=== PATIENT | female | born 1960 | race Caucasian/White ===

== ENCOUNTER 2024-03-18 06:46 | Observation (INO) ==
--- NOTE | 2024-03-18 07:13 | Emergency Department Note ---
Impression & Plan Dizziness, Headache, Balance problem, Ambulatory dysfunction ED Provider Note NAME: STORM MUSTAFA AGE: 63 SEX: F : 1960 ARRIVES VIA: Walk-In INFORMANT: [Patient] ED PROVIDER(S): [Albert Booth MD] Patient first seen by me at 0700 CHIEF COMPLAINT: Dizziness HISTORY OF PRESENT ILLNESS: The patient is a 63-year-old female who presents to the ER with 2 hours of symptoms. The patient states that she woke up this morning at 5 AM and when she went to sit on the edge of the bed, felt some pressure in her head especially on the right and she felt very off balance. She was dizzy and nauseated. She had a hard time making it to the bathroom and back. She had to hold onto the wall because she was so off balance. There is no arm or leg weakness per se. She has not had cough or congestion, no chest pain or shortness of breath. No urinary complaints. No history of previous CVA, no history of vertigo. Of note, the patient went to bed last night feeling perfectly at baseline. Last known well was at midnight, 7 hours ago. PMHx/PSHx/Social Hx: See Below PHYSICAL EXAM: GENERAL: Patient is in no acute distress. HEENT: No acute trauma, normocephalic atraumatic, mucous membranes moist, no nasal congestion. No nystagmus. NECK: No stridor, no adenopathy, no meningismus, trachea is midline. LUNGS: Clear to auscultation bilaterally, no wheeze, no rhonchi, breath sounds equal. HEART: Without murmurs gallops or rubs, regular rate and rhythm. ABDOMEN: Soft, nontender, no peritonitis. EXTREMITIES: No cyanosis, full range of motion of all the joints without pain or difficulty. NEUROLOGIC: Oriented x 3. No speech slur, no extremity drift or cerebellar dysfunction. When attempting to ambulate, the patient is extremely off balance, she has a very hard time standing without assistance. SKIN: No jaundice, no diaphoresis. DIFFERENTIAL DIAGNOSIS: Vertigo, CVA, intracranial bleeding, UTI, electrolyte imbalance, among others. EMERGENCY DEPARTMENT PROCEDURES: MEDICAL DECISION MAKING: There is no leukocytosis or concerning anemia. There is a normal platelet count. No coagulopathy. No renal failure or significant electrolyte abnormality. No concerning liver enzyme elevation. ECG showed a sinus rhythm, no acute ischemia. Cardiac enzyme testing x 1 is not consistent with acute cardiac injury. Brain CT did not show any bleeding or mass effect. CT angiography of the neck and brain were performed, there was no clot or significant stenosis. On exam, the patient had a difficult time with balance and standing. No focal extremity deficits, no speech slur. Given her presentation, a stroke alert was called. The patient was out of the window for TNK. Her last known well was around 7 hours ago. The stroke neurologist from [facility] did see the patient via telemedicine. Patient is in need of further workup from a stroke standpoint. Hospitalization is indicated. The patient was given oral aspirin, oral Plavix and oral atorvastatin as directed by the consulting neurologist. The patient received IV Benadryl, IV Tylenol, IV Zofran to help with her symptoms/complaints. The patient's presentation is consistent with potential vertigo. A posterior circulation stroke was certainly a concern as well. Further care/workup in the hospital is warranted. The patient is aware of all her findings, I did speak with case management, the on-call hospitalist was consulted. Prior/Outside records/notes reviewed: None ECG per my interpretation: Indication was possible stroke. The ECG shows a sinus rhythm with a first-degree AV block. The rate is 72. There is no ST elevation, no PVCs. The QTc is 438. Continuous Cardiac Monitoring per my interpretation: An order was placed for continuous cardiac monitoring. The monitor shows a rate of 77 with sinus rhythm with a first AV block. Imaging/x-ray results per my interpretation: Chronic Medical/Social conditions affecting care: None Care/Management discussed with: [facility] stroke neurologist-Dr. Connell. Case management and the on-call hospitalist. Level of care consideration(s): After review of the information above and other included data: --I believe the patient requires escalation of care to admission Critical Care Note: I have personally spent 51 minutes of critical care time in the direct management of this patient. This includes bedside care, interpretation of diagnostic studies, and testing, discussion with consultants, patient, and family members, and other required patient management activities. This 51 minutes is in excess of all separately billable procedures. DISPOSITION: Admission Past Med/Surg History Problem List (Updated 03/18/24 @ 15:43 by Albert Booth MD) Ambulatory dysfunction (Acute) Balance problem (Acute) Headache (Acute) Dizziness (Acute) Seizure-like activity Dizziness Stroke-like symptoms Encounter for completion of form with patient Family history of colon cancer requiring screening colonoscopy Hypothyroidism Acute reaction to situational stress Localized osteoarthritis of left knee Prepatellar bursitis, left knee Insomnia Postcholecystectomy diarrhea Chronic diarrhea Left knee DJD Psoriasis Lumbosacral radiculopathy at L5 Sleep apnea Overweight Left knee pain Numbness Arthralgia Depression Fatigue History of thyroid cancer (Chronic) Anxiety (Chronic) Pre-diabetes (Chronic) HTN (hypertension) (Chronic) History of [place] thyroiditis Medical History Arthritis both knees Sleep apnea no cpap/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 Diarrhea current problem/reason for colonoscopy Depression with anxiety History of kidney stones History of thyroid cancer Surgical History Hx of lithotripsy Hx laparoscopic cholecystectomy (~1992) Hx of colonoscopy Hx of sinus surgery Hx of tubal ligation S/P lumpectomy of breast S/P hernia repair S/P tonsillectomy S/P thyroidectomy Family History Family/Other Ovarian cancer Grandfather (Maternal) Colon cancer Grandmother (Maternal) Colon cancer Hypertension Father Myocardial infarction Denies family history of Prostate cancer Diabetes Breast cancer Social History Smoking Status: Never smoker Second Hand Exposure: No; Do You Dip or Chew Tobacco: No; Hx Alcohol Use: Yes Hx Substance Use: No Preferred Language: [place] Communication Ability: Effective Speech Professor Required: No Beliefs That Will Affect Care: None marital status: Current Living Situation: Other Current Living Situation Comment: with son current occupational status: employed current occupation: cash accountant Other Information That Helps Us Care for You: No Feels Safe at Home: Yes Childhood Exposure to Second-Hand Smoke: Yes Dental Care, Regularly: Yes Physical Activity Frequency: Does not Exercise Seatbelt Use: always Sunscreen Use: Yes Assistive Devices: Glasses Allergies Allergies Allergy/AdvReac Type Severity Reaction Status Date / Time No Known Allergies Allergy Verified 03/18/24 08:12 Home Meds Home Medications Medication Instructions Recorded Confirmed calcium carbonate (Calcium 600) 600 mg PO DAILY 03/31/22 03/18/24 cetirizine 10 mg tablet (Zyrtec) 10 mg PO HS allergies 03/31/22 03/18/24 duloxetine 30 mg capsule,delayed 30 mg PO QAM 09/24/23 03/18/24 release (Cymbalta) escitalopram oxalate 20 mg tablet 20 mg PO QAM 09/24/23 03/18/24 fluocinonide 0.05 % topical cream 1 applic topical BID PRN Dry Skin 09/24/23 03/18/24 hydrocortisone 2.5 % topical cream 1 applic topical BID PRN Dry Skin 09/24/23 03/18/24 lisinopril 20 1 tab PO QPM 09/24/23 03/18/24 mg-hydrochlorothiazide 12.5 mg tablet oxymetazoline 0.05 % nasal spray 2 spray intranasal QAM PRN 09/24/23 03/18/24 allergies Previous Rx's Medication Instructions Recorded bupropion HCl 150 mg 24 hr tablet, 150 mg PO QAM #90 tabs 10/17/23 extended release trazodone 150 mg tablet 150 mg PO HS #90 tabs 11/08/23 levothyroxine 137 mcg tablet 137 mcg PO QAM #90 tabs 11/19/23 lorazepam 0.5 mg tablet 0.5 mg buccal BID PRN anxiety #30 12/12/23 tabs liothyronine 5 mcg tablet 10 mcg (2 x 5 mcg) PO QAM #60 tabs 01/07/24 Results & Data (ED) Vital Signs Vital Signs - 24 hr 03/18/24 06:51 03/18/24 07:00 03/18/24 07:15 Temperature 36.5 C Temperature Source Temporal Artery Scan Pulse Rate 77 70 Pulse Rate [Finger] 72 Pulse Rate from SpO2 Sensor Pulse Rhythm [Finger] Regular Pulse Strength [Finger] Normal Respiratory Rate 18 20 14 Respiratory Effort / Characteristics Non-Labored Spontaneous Non-Labored Respiratory Depth Normal Normal Respiratory Pattern Regular Regular Blood Pressure 130/83 Blood Pressure [Left Arm] 128/80 Blood Pressure Mean 98 Blood Pressure Mean [Left Arm] 96 Blood Pressure Position Sitting Blood Pressure Position [Left Arm] Lying Pulse Oximetry 96 98 Oxygen Delivery Method Room Air Room Air Sepsis Recent Fever Within 48 Hours No Sepsis New/Unexplained Change in Mental Status No Sepsis Action Taken by Nursing No Action Required 03/18/24 07:43 03/18/24 07:43 03/18/24 07:44 Temperature Temperature Source Pulse Rate 83 Pulse Rate [Finger] 79 Pulse Rate from SpO2 Sensor Pulse Rhythm [Finger] Regular Pulse Strength [Finger] Normal Respiratory Rate 20 Respiratory Effort / Characteristics Non-Labored Respiratory Depth Normal Respiratory Pattern Regular Blood Pressure 146/84 H Blood Pressure [Left Arm] 146/84 H Blood Pressure Mean 98 Blood Pressure Mean [Left Arm] 104 Blood Pressure Position Blood Pressure Position [Left Arm] Lying Pulse Oximetry 95 Oxygen Delivery Method Room Air Sepsis Recent Fever Within 48 Hours Sepsis New/Unexplained Change in Mental Status Sepsis Action Taken by Nursing 03/18/24 07:45 03/18/24 07:54 03/18/24 08:00 Temperature Temperature Source Pulse Rate 92 H 84 Pulse Rate [Finger] Pulse Rate from SpO2 Sensor 78 Pulse Rhythm [Finger] Pulse Strength [Finger] Respiratory Rate 20 22 Respiratory Effort / Characteristics Respiratory Depth Respiratory Pattern Blood Pressure 133/75 Blood Pressure [Left Arm] Blood Pressure Mean 102 Blood Pressure Mean [Left Arm] Blood Pressure Position Blood Pressure Position [Left Arm] Pulse Oximetry 96 Oxygen Delivery Method Sepsis Recent Fever Within 48 Hours Sepsis New/Unexplained Change in Mental Status Sepsis Action Taken by Nursing 03/18/24 08:09 03/18/24 08:30 03/18/24 08:30 Temperature Temperature Source Pulse Rate 73 64 Pulse Rate [Finger] Pulse Rate from SpO2 Sensor 65 Pulse Rhythm [Finger] Pulse Strength [Finger] Respiratory Rate 13 19 Respiratory Effort / Characteristics Respiratory Depth Respiratory Pattern Blood Pressure 133/69 Blood Pressure [Left Arm] Blood Pressure Mean 96 Blood Pressure Mean [Left Arm] Blood Pressure Position Blood Pressure Position [Left Arm] Pulse Oximetry 95 Oxygen Delivery Method Sepsis Recent Fever Within 48 Hours Sepsis New/Unexplained Change in Mental Status Sepsis Action Taken by Nursing 03/18/24 08:39 03/18/24 09:01 Temperature Temperature Source Pulse Rate 70 Pulse Rate [Finger] Pulse Rate from SpO2 Sensor Pulse Rhythm [Finger] Pulse Strength [Finger] Respiratory Rate 17 Respiratory Effort / Characteristics Respiratory Depth Respiratory Pattern Blood Pressure 133/115 H Blood Pressure [Left Arm] Blood Pressure Mean 119 Blood Pressure Mean [Left Arm] Blood Pressure Position Blood Pressure Position [Left Arm] Pulse Oximetry Oxygen Delivery Method Sepsis Recent Fever Within 48 Hours Sepsis New/Unexplained Change in Mental Status Sepsis Action Taken by [facility] Medications Current Medication List: was personally reviewed by me Laboratory Data Attestation: I reviewed the patient's lab results. 03/18/24 07:10 03/18/24 07:10 Lab Results 03/18/24 03/18/24 Range/Units 07:10 07:16 WBC 4.86 (4.8-10.8) K/ul RBC 5.00 (4.20-5.40) M/uL Hgb 14.0 (12.0-16.0) g/dl POC Hgb 13.6 (12.0-16.0) g/dl Hct 41.6 (37.0-47.0) % POC Hct 40 (37-47) % MCV 83.2 (80.0-100.0) fL MCH 28.0 (25.0-34.0) pg MCHC 33.7 (32.0-36.0) g/dL RDW Std Deviation 37.1 (36.4-46.3) fL RDW Coeff of Nathanael 12.1 (11.5-14.5) % Plt Count 272 (130-400) K/uL MPV 10.4 (9.4-12.4) fL Immature Gran % (Auto) 0.4 % Neut % (Auto) 60.6 % Lymph % (Auto) 25.7 % [place] % (Auto) 7.8 % Eos % (Auto) 4.1 % Baso % (Auto) 1.4 % Neut # (Auto) 2.94 (1.40-6.50) K/uL Lymph # (Auto) 1.25 (1.20-3.40) K/uL [place] # (Auto) 0.38 (0.11-0.59) K/uL Eos # (Auto) 0.20 (0.00-0.50) K/uL Baso # (Auto) 0.07 (0.00-0.20) K/uL Immature Gran # (Auto) 0.02 (0.01-0.20) K/uL PT 10.0 (9.0-12.0) Seconds INR 0.9 (0.9-1.1) APTT 26 (21-31) Seconds PTT Ratio 1.0 POC Sodium 139 (135-144) mmol/L Sodium 138 (136-145) mmol/L POC Potassium 3.8 (3.3-5.0) mmol/L Potassium 3.9 (3.5-5.1) mmol/L POC Chloride 100 L (101-112) mmol/L Chloride 103 (98-107) mmol/L Carbon Dioxide 30 (21-32) mmol/L POC Total CO2 27 (24-31) mmol/L Anion Gap 5 (3-11) POC Anion Gap 17.0 (16-25) mmol/L POC BUN 9 (7-18) mg/dl BUN 9 (6-23) mg/dl Creatinine 1.12 (0.6-1.2) mg/dl POC Creatinine 1.2 (0.6-1.3) mg/dl Est Cr Clr Drug Dosing 74.4 ml/min eGFR 55.95 BUN/Creatinine Ratio 8.0 L (10-20) Glucose 112 H (70-99(Fasting)) mg/dl POC Glucose (other) 113 H (70-99) mg/dl Calcium 9.3 (8.6-10.3) mg/dl POC Ioniz Calcium [place] 1.24 (1.12-1.32) mmol/l Magnesium 2.2 (1.7-2.4) mg/dl Total Bilirubin 0.6 (0.2-1.0) mg/dl AST 11 L (13-39) U/L ALT 12 (7-52) U/L Alkaline Phosphatase 83 (34-104) U/L Troponin I High Sens 3.5 (0-14) pg/ml Total Protein 6.7 (6.0-8.3) gm/dl Albumin 4.2 (3.4-5.0) gm/dl Globulin 2.5 (2.5-4.0) gm/dl Albumin/Globulin Ratio 1.7 (0.9-2) Administered Medications Discontinued Medications Aspirin (Aspirin Chew 324 Mg) 324 mg PO NOW STA Stop: 03/18/24 08:11 Last Admin: 03/18/24 08:33 Dose: 324 mg Documented By: KUSH Atorvastatin Calcium (Atorvastatin 40 Mg Tab) 80 mg PO NOW STA Stop: 03/18/24 08:11 Last Admin: 03/18/24 08:34 Dose: 80 mg Documented By: KUSH Clopidogrel Bisulfate (Clopidogrel Bisulfate 300 Mg Tab) 300 mg PO NOW STA Stop: 03/18/24 08:11 Last Admin: 03/18/24 08:34 Dose: 300 mg Documented By: KUSH Diphenhydramine HCl (Diphenhydramine 50 Mg/Ml Vial) 12.5 mg IV NOW STA Stop: 03/18/24 08:12 Last Admin: 03/18/24 08:35 Dose: 12.5 mg Documented By: KUSH Acetaminophen (Ofirmev) 1,000 mg in 100 mls @ 400 mls/hr IV NOW STA Stop: 03/18/24 08:22 Last Infusion: 03/18/24 09:10 Dose: Infused Documented By: Admin: 03/18/24 08:38 Dose: 400 mls/hr Documented By: KUSH Ioversol (Optiray 320 125ml) 120 ml IV ONCE ONE Stop: 03/18/24 07:26 Last Admin: 03/18/24 07:24 Dose: 120 ml Documented By: LEAH Ondansetron HCl (Ondansetron Inj 2 Mg/Ml 2 Ml Vial) 4 mg IV NOW STA Stop: 03/18/24 08:09 Last Admin: 03/18/24 10:16 Dose: Not Given Documented By: KUSH Imaging Data Radiologist's Impression: Head CT 03/18/24 07:08 CT OF THE HEAD WITHOUT CONTRAST CLINICAL HISTORY: neuro deficit, acute stroke suspected COMPARISON STUDY: MRI of the brain November 22, 2021. Head CT and CTA of the head July 11, 2019. TECHNIQUE: Helical axial images of the head were obtained without IV contrast. Automated exposure control was utilized for the study. A dose lowering technique was utilized adhering to the principles of ALARA. FINDINGS: No acute intracranial hemorrhage, midline shift or mass effect is present. Mild white matter hypodensities are similar to prior exam and favor small vessel disease. The ventricular system is unremarkable. The basal cisterns are patent. No extra-axial collections are present. There are no findings to suggest acute dural sinus thrombosis or acute territorial infarct. There are no calvarial fractures. Postoperative findings within the sinuses are partially imaged. IMPRESSION: No acute intracranial findings. ACT 112: Negative or not required by law. Electronically signed by: Phu Stevens M.D. 03/18/2024 7:34 AM Head CTA 03/18/24 07:08 CTA ANGIOGRAPHY OF THE HEAD CLINICAL HISTORY: neuro deficit, acute stroke suspected COMPARISON STUDY: CTA of the head July 11, 2019. TECHNIQUE: Helical axial images of the head were obtained following uneventful intravenous administration of 120 cc of Optiray. Sagittal and coronal reconstructions were viewed as well as maximal intensity projections on an independent 3-D workstation. Automated exposure control was utilized for the study. A dose lowering technique was utilized adhering to the principles of ALARA. FINDINGS: No acute intracranial hemorrhage, midline shift or mass effect is present. Ventricular system is normal. Basal cisterns are patent. There are no extra-axial collections. There is mild atherosclerotic plaque within the cavernous carotids without stenosis. There is no intracranial aneurysm. No vessel occlusion within the anterior or posterior circulation is identified. The intracranial portions of the vertebral arteries as well as the basilar artery and posterior cerebral arteries are patent. IMPRESSION: No large vessel occlusion. No intracranial aneurysm. ACT 112: Negative or not required by law. Electronically signed by: Phu Stevens M.D. 03/18/2024 7:37 AM Neck CTA 03/18/24 07:08 CT ANGIOGRAM OF THE NECK CLINICAL HISTORY: Headache. Dizziness. Loss of balance. Nausea. COMPARISON STUDY: CT exam of the neck dated 07/11/2019. TECHNIQUE: Following the IV administration of 120 of Optiray 320, CT angiogram of the neck was performed from the aortic arch to the skull base. Images are reviewed in the axial, sagittal, and coronal planes. 3-D MIPS images are created and assessed. IV contrast was administered without complication. All measurements were calculated based on NASCET criteria. A dose lowering technique was utilized adhering to the principles of ALARA. CT DOSE: 952.25 mGy.cm FINDINGS: Thoracic aorta: Visualized portions of the thoracic aorta are normal in caliber. The aortic arch demonstrates standard 3-vessel anatomy. Right carotid arterial system: The right common carotid artery is widely patent, as are the right internal and external carotid arteries. Left carotid arterial system: The left common carotid artery is widely patent, as are the left internal and external carotid arteries. Calcified plaque is noted in the carotid bulb. Vertebral arteries: Widely patent bilaterally and codominant. Subclavian arteries: Widely patent bilaterally. Intracranial vasculature: The visualized intracranial vessels at the skull base are patent. Jugular veins: Patent bilaterally. Brain parenchyma: The visualized brain parenchyma the skull base is within normal limits. Lung apices: Partially visualized upper lobe lung parenchyma appears clear. Soft tissues: The visualized pharyngeal soft tissues are normal in appearance noting angiographic phase technique. The oropharyngeal airway appears widely patent. The thyroid gland is surgically absent. The salivary glands are normal in appearance. No cervical lymphadenopathy is seen. Skeletal structures: The skeletal structures are osteopenic. The visualized calvarium at the skull base appears intact. The imaged cervical spine is maintained noting multilevel spondylosis. Sinuses and mastoids: There is evidence of previous paranasal sinus surgery. There is moderate mucosal thickening in the maxillary antra, with a 1.5 cm retention cyst noted on the left. Mild mucosal thickening is noted in the ethmoid cavity. The mastoid air cells are well pneumatized. IMPRESSION: Unremarkable CT angiogram of the neck. ACT 112: Negative or not required by law. Electronically signed by: Albert Linder M.D. 03/18/2024 7:45 AM Discharge Plan Visit Data Chief Complaint: Head Pain Stated Complaint: DIZZINESS,NAUSEA,UNSTABLE WALKING,HEAD PAIN ED Provider: Albert Booth Discharge Problem: Dizziness, Headache, Balance problem, Ambulatory dysfunction Patient Disposition: Admitted As Inpatient Condition: Fair Discharge Instructions Interventions: ED Discharge Assessment Last Done: 03/18/24 10:16 Discharge Problem: Headache Qualifiers: Headache type: unspecified Headache chronicity pattern: acute headache I ntractability: not intractable Qualified Code(s): R51.9 - Headache, unspecified
[2024-03-18] MEDS: OPTIRAY 320 125ml IV ONE (07:24)
--- NOTE | 2024-03-18 07:37 | CT Scan Report ---
CT OF THE HEAD WITHOUT CONTRAST CLINICAL HISTORY: neuro deficit, acute stroke suspected COMPARISON STUDY: MRI of the brain November 22, 2021. Head CT and CTA of the head July 11, 2019. TECHNIQUE: Helical axial images of the head were obtained without IV contrast. Automated exposure con trol was utilized for the study. A dose lowering technique was utilized adhering to the principles o f ALARA. FINDINGS: No acute intracranial hemorrhage, midline shift or mass effect is present. Mild white matte r hypodensities are similar to prior exam and favor small vessel disease. The ventricular system is u nremarkable. The basal cisterns are patent. No extra-axial collections are present. There are no find ings to suggest acute dural sinus thrombosis or acute territorial infarct. There are no calvarial fra ctures. Postoperative findings within the sinuses are partially imaged. IMPRESSION: No acute intracranial findings. ACT 112: Negative or not required by law. Electronically signed by: Phu Stevens M.D. 03/18/2024 7:34 AM
--- NOTE | 2024-03-18 07:38 | CT Scan Report ---
CTA ANGIOGRAPHY OF THE HEAD CLINICAL HISTORY: neuro deficit, acute stroke suspected COMPARISON STUDY: CTA of the head July 11, 2019. TECHNIQUE: Helical axial images of the head were obtained following uneventful intravenous administr ation of 120 cc of Optiray. Sagittal and coronal reconstructions were viewed as well as maximal inten sity projections on an independent 3-D workstation. Automated exposure control was utilized for the study. A dose lowering technique was utilized adhering to the principles of ALARA. FINDINGS: No acute intracranial hemorrhage, midline shift or mass effect is present. Ventricular syst em is normal. Basal cisterns are patent. There are no extra-axial collections. There is mild atherosc lerotic plaque within the cavernous carotids without stenosis. There is no intracranial aneurysm. No vessel occlusion within the anterior or posterior circulation is identified. The intracranial portion s of the vertebral arteries as well as the basilar artery and posterior cerebral arteries are patent. IMPRESSION: No large vessel occlusion. No intracranial aneurysm. ACT 112: Negative or not required by law. Electronically signed by: Phu Stevens M.D. 03/18/2024 7:37 AM
[2024-03-18 07:43] LABS: iSTAT Creatinine 1.2 mg/dl (0.6-1.3); iSTAT Hemoglobin 13.6 g/dl (12.0-16.0); iSTAT Ionized Calcium 1.24 mmol/l (1.12-1.32); iSTAT Potassium 3.8 mmol/L (3.3-5.0)
--- NOTE | 2024-03-18 07:48 | CT Scan Report ---
CT ANGIOGRAM OF THE NECK CLINICAL HISTORY: Headache. Dizziness. Loss of balance. Nausea. COMPARISON STUDY: CT exam of the neck dated 07/11/2019. TECHNIQUE: Following the IV administration of 120 of Optiray 320, CT angiogram of the neck was perfor med from the aortic arch to the skull base. Images are reviewed in the axial, sagittal, and coronal p lanes. 3-D MIPS images are created and assessed. IV contrast was administered without complication. A ll measurements were calculated based on NASCET criteria. A dose lowering technique was utilized adh ering to the principles of ALARA. CT DOSE: 952.25 mGy.cm FINDINGS: Thoracic aorta: Visualized portions of the thoracic aorta are normal in caliber. The aortic arch demo nstrates standard 3-vessel anatomy. Right carotid arterial system: The right common carotid artery is widely patent, as are the right int ernal and external carotid arteries. Left carotid arterial system: The left common carotid artery is widely patent, as are the left international marketing specialist al and external carotid arteries. Calcified plaque is noted in the carotid bulb. Vertebral arteries: Widely patent bilaterally and codominant. Subclavian arteries: Widely patent bilaterally. Intracranial vasculature: The visualized intracranial vessels at the skull base are patent. Jugular veins: Patent bilaterally. Brain parenchyma: The visualized brain parenchyma the skull base is within normal limits. Lung apices: Partially visualized upper lobe lung parenchyma appears clear. Soft tissues: The visualized pharyngeal soft tissues are normal in appearance noting angiographic pha se technique. The oropharyngeal airway appears widely patent. The thyroid gland is surgically absent. The salivary glands are normal in appearance. No cervical lymphadenopathy is seen. Skeletal structures: The skeletal structures are osteopenic. The visualized calvarium at the skull ba se appears intact. The imaged cervical spine is maintained noting multilevel spondylosis. Sinuses and mastoids: There is evidence of previous paranasal sinus surgery. There is moderate mucosa l thickening in the maxillary antra, with a 1.5 cm retention cyst noted on the left. Mild mucosal thi ckening is noted in the ethmoid cavity. The mastoid air cells are well pneumatized. IMPRESSION: Unremarkable CT angiogram of the neck. ACT 112: Negative or not required by law. Electronically signed by: Albert Linder M.D. 03/18/2024 7:45 AM
[2024-03-18 07:54] LABS: Basophils # (auto) 0.07 K/uL (0.00-0.20); Basophils % (auto) 1.4 %; Eosinophils % (auto) 4.1 %; Hematocrit (blood only) 41.6 % (37.0-47.0); Immature Granulocytes # (auto) 0.02 K/uL (0.01-0.20); Immature Granulocytes % (auto) 0.4 %; Lymphocytes # (auto) 1.25 K/uL (1.20-3.40); Lymphocytes % (auto) 25.7 %; Mean Corpuscular Hgb Conc 33.7 g/dL (32.0-36.0); Mean Corpuscular Volume 83.2 fL (80.0-100.0); Mean Platelet Volume 10.4 fL (9.4-12.4); Monocytes # (auto) 0.38 K/uL (0.11-0.59); Monocytes % (auto) 7.8 %; Neutrophils # (auto) 2.94 K/uL (1.40-6.50); Neutrophils % (auto) 60.6 %; Platelet Count 272 K/uL (130-400); RDW Coefficient of Variation 12.1 % (11.5-14.5); RDW Standard Deviation 37.1 fL (36.4-46.3); White Blood Count 4.86 K/ul (4.8-10.8)
[2024-03-18 08:00] LABS: Albumin Globulin Ratio 1.7 (0.9-2); Albumin Level 4.2 gm/dl (3.4-5.0); Bilirubin,Total 0.6 mg/dl (0.2-1.0); Calcium 9.3 mg/dl (8.6-10.3); Creatinine Clr Calc Pharmacy 74.4 ml/min; Globulin 2.5 gm/dl (2.5-4.0); Magnesium 2.2 mg/dl (1.7-2.4); Potassium 3.9 mmol/L (3.5-5.1); Total Protein 6.7 gm/dl (6.0-8.3)
--- OUTSIDE RECORDS SUMMARY | 2024-03-18 08:04 | External Medical Summary | Summary of Care ---
Author Name Unknown Organization [facility] Address [address] [place] [address] Phone [phone] Care Team Providers Care Excavator Operator Name Role Phone Unavailable Primary Care Provider Unavailabl e Reason for Visit * Reason Comments Completion Of Treatment Encounter Details Date Type Department Care Team (Late st Contact Info) Description 12/05/2023 Documentation Psychology [facility] [place] [address] [place] [address] Devyn Miller, [facility] [address], [place] [id number] Medications Medication Sig Dispensed Refills Start Date End Date Status buPROPion HCl ER (XL) 150 MG Oral Tablet Extended Release 24 Hour (Wellbutrin XL) Take 1 Tablet by mouth. In the morning. 04/16/2023 Active traZODone HCl 150 MG Oral Tablet (Desyrel) Take 1 Tablet by mouth in the morning. 04/14/2023 Active DULoxetine HCl 30 MG Oral Capsule Delayed Release Particles (Cymbalta) Take 1 Capsule by mouth in the morning. Active LORazepam 0.5 MG Oral Tablet (Ativan) TAKE 1 TABLET BY MOUTH BUCALLY TWICE DAILY NEEDED FOR ANXIETY 04/25/2023 Active documented as of this encounter (statuses as of 12/05/2023) Social History Tobacco Use Types Packs/Day Years Used Date Smoking Tobacco: Never Smokeless Tobacco: Never Alcohol Use Standard Drinks/Week Comments Yes 0 (1 standard drink = 0.6 oz pur e alcohol) occ PHQ-2 Answer Date Recorded PHQ Adult Total Score 18 05/09/2023 Hunger Vital Sign Answer Date Recorded Within the past 12 months, y ou worried that your food would run out before you got the money to buy more. Never true 05/09/20 23 Within the past 12 months, t he food you bought just didn't last and you didn't have money to get more. Never true 05/09/2023 Childcare Answer Date Recorded Do you feel overwhelmed with taking care of a child, family member or friend? Yes 05/09/2023 Does your family need help f inding childcare? (Household - for ages 0-17 years) Not on file 05/09/2023 Clothing Answer Date Recorded Have you been unable to get clothing when it was really needed? Yes 05/09/2023 Is your family able to get c lothes or diapers when needed? (Household - for ages 0-17 years) Not on file 05/09/2023 Personal Safety Answer Date Recorded Do you feel unsafe or have concerns for your saf ety? No 05/09/2023 Do you have concerns for you r family's safety? (Household - for ages 0-17 years) Not on file 05/09/2023 Utilities Answer Date Recorded Do you have trouble paying y our heating, water, or electric bill? No 05/09/2023 Is your family able to pay t he heat, water, or electric bill? (Household - for ages 0-17 years) Not on file 05/09/2023 Does your family have access to good internet? (Household - for ages 0-17 years) Not on file 05/09/2023 Employment Status Answer Date Recorded Are you unemployed or without regular income? No 05/09/2023 Does the household have a re gular source of income? (Household - for ages 0-17 years) Not on file 05/09/2023 Social Connections Answer Date Recorded How often do you feel lonely or isolated from th ose around you? Always 05/09/2023 Financial Resource Strain Answer Date R ecorded Do you have any trouble payi ng for your medications, or do you think you might in the future? No 05/09/2023 Does your family have troubl e paying for medicine? (Household - for ages 0-17 years) Not on file 05/09/2023 Transportation Needs Answer Date Record ed READ ONLY Do you have troubl e getting a ride to medical visits or work? Never True 05/09/2023 Does your family have a hard time getting a ride to doctors visits? (Household - for ages 0-17 years) Not on file 05/09/2023 Has lack of transportation k ept you from medical appointments, meetings, work, or from getting things needed for daily living? Check all that apply. (Adult - for ages 18 years and over) Not on file 05/09/2023 Do you (or your family) have trouble finding or paying for a ride (transportation)? (Household - for ages 0-17 years) Not on file 05/09/2023 Housing Stability Answer Date Recorded Do you currently live in a s helter or have no steady place to sleep at night? No 05/09/2023 READ ONLY Do you think you a re at risk of becoming homeless? No 05/09/2023 Does your family worry about paying for your home or becoming homeless? (Household - for ages 0-17 years) Not on file 1 07/10/2022 Are you homeless or worried that you might be in the future? (Adult - for ages 18 years and over) Not on file Are you (or your family) nona eless or worried that you might be in the future? (Household - for ages 0-17 years) Not on file Food Insecurity Answer Date Recorded Do you need food for this week? No 05/09/2023 Are you able to get enough f ood for your family? (Household - for ages 0-17 years) Not on file 05/09/2023 Does your family need food t his week? (Household - for ages 0-17 years) Not on file 05/09/2023 Do you always have enough fo od for your family? (Household - for ages 0-17 years) Not on file 05/09/2023 Education Answer Date Recorded What is the highest level of school you have completed or the highest degree you have received? High school graduate 05/09/2023 Sex and Gender Information Value Date Recorded Sex Assigned at Female 05/09/2023 10:26 AM EST Gender Identity Female 05/09/2023 10:26 AM EST Sexual Orientation Straight 05/09/2023 10 :34 AM EST documented as of this encounter Progress Notes * Devyn Miller LCSW - 12/05/2023 9:23 AM EDT THERAPY/PSYCHOLOGY DISCHARGE SUMMARY 1. Summary of Services provided: Individual Therapy 2. Outcomes and referrals: Patient improved; is no longer in need of treatment; will continue care with PCP 3. Relevant psychosocial status: stable Plan of care at time of discharge including referrals: Use crisis plan as needed Can consult us in the future as clinically indicated Patient and/or family has access to this document through [employer] Safety Plan: Crisis Plan Step 1: Signs that I am doing worse: Isolating Step 2: Internal Coping Strategies: Things I can do to take my mind off my problems without contacting another person: Clean my house Step 3: People and social settings that provide distraction (name, phone number and place): My girlfriends. Number listed in phone. My grandparents farm. Step 4: People whom I can ask for help (name and phone number): My girlfriends. Number listed in phone Step 5: Professionals or agencies I can contact during a crisis (clinician name and phone number): Professional Resources: 1. Local Crisis Services: For [facility] Choose option 1 - [facility] Departmentof Tax Assistant 2. [facility] Division of Psychiatry: [phone] 3. National Suicide Prevention Lifeline: or 081 4. National Crisis Text Line: Text HOME to 432060 5. 911 or proceed to the nearest emergency room Step 6: Keeping the environment safe: Plan for restricting access to lethal means (firearms, medications). N/A documented in this encounter Plan of Treatment Health Maintenance Due Date Last Done Comments Lipid Panel 1962 HIV Screening 1977 Hepatitis C Screening 1980 DTaP,Tdap,and Td Vaccines (1 - Tdap) 1981 Pap Smear 1983 Cervical Cancer Screening 1992 HPV/Co-Test 1992 Mammogram 2002 Cologuard 2007 Colonoscopy 2007 Colorectal Cancer Screening 2007 Fecal Occult Blood Test 2007 Sigmoidoscopy 2007 Zoster Vaccines (3 of 3) 06/27/2020 020, 02/23/2020 COVID-19 Vaccine (2 - 2022-2 4 season) 2023 09/21/2020 Influenza Vaccine (FLU shot) (#1) 2024 03/11/2022, 04/20/2021, 04/09/2019 Depression Monitoring 05/09/2024 05/09/2023 Pneumococcal Vaccine: Pediatrics (0 to 5 Years) and At-Risk Patients (6 to 64 Years) Aged Out 02/18/2020 No longer eligible b ased on patient's age to complete this topic HPV (Gardasil) Vaccine Aged Out No lo nger eligible based on patient's age to complete this topic Hepatitis B Vaccine Aged Out No longe r eligible based on patient's age to complete this topic MENINGOCOCCAL (MENACTRA/MENVEO) Aged Out No longer eligible b ased on patient's age to complete this topic documented as of this encounter Medical Devices Not on filedocumented as of this encounter
[2024-03-18 08:07] LABS: Troponin I High Sensitivity 3.5 pg/ml (0-14)
[2024-03-18 08:10] LABS: INR 0.9 (0.9-1.1); Partial Thromboplastin Time 26 Seconds (21-31)
[2024-03-18] MEDS: ASPIRIN CHEW 324 MG PO STA (08:33)
[2024-03-18] MEDS: ATORVASTATIN 40 MG TAB PO STA (08:34)
[2024-03-18] MEDS: CLOPIDOGREL BISULFATE 300 MG TAB PO STA (08:34)
[2024-03-18] MEDS: diphenhydrAMINE 50 MG/ML VIAL IV STA (08:35)
[2024-03-18] MEDS: ACETAMINOPHEN 1,000 MG/100 ML VIAL IV STA (08:38)
--- NOTE | 2024-03-18 08:47 | History & Physical Report ---
Date of Service March 18, 2024 Assessment & Plan (1) Dizziness: Plan: Acute onset of dizziness and ambulatory dysfunction upon waking at 0500 on 03/18 LKW the evening of 03/17 around midnight Patient reports she could barely walk when she got up, and was experiencing significant ambulatory dysfunction No prior history of stroke or vertigo Patient was not a TNKase candidate based on timeline of symptoms Telestroke recommended aspirin/Plavix load, atorvastatin, and EEG given family history of seizures and right eye twitching noted on clinical exam EEG ordered, pending Brain MRI ordered, pending Echocardiogram with bubble study ordered, pending Neurochecks q4h Patient passed dysphagia screen at bedside; okay to eat Will plan to start Aspirin 81 mg and Plavix 75 mg daily after was loaded with aspirin and Plavix in the ER Atorvastatin 40 mg daily; follow-up fasting lipid panel IV antiemetics as needed Meclizine 12.5mg q6h PRN for dizziness Neurology consult pending MRI PT/OT evaluations appreciated Fall precautions AM CBC, BMP, fasting lipid panel, A1c (2) HTN (hypertension): Plan: Permissive HTN in the setting of strokelike symptoms; hold HCTZlisinopril for now (3) Hypothyroidism: Plan: Continue levothyroxine and liothyronine Check TSH in the morning (4) Anxiety: Plan: Continue home duloxetine, bupropion, trazodone, and Lexapro Lorazepam as needed Plan Disposition: Obs -admit to PCU telemetry Full code Regular diet VTE PPx: SCDs History of Present Illness Chief Complaint: Dizziness, head pain Primary Care Provider: Kirsty Figueroa MD [place] is a pleasant 63-year-old female with PMH of HTN, anxiety, depression, thyroid cancer, sleep apnea, psoriasis, and prediabetes. She presented on 03/18 after waking up this morning with dizziness and difficulty walking. She reports that she felt fine when she went to bed last night around midnight. She then woke up around 5 AM to use the bathroom, and had a hard time transitioning from lying down to sitting at the edge of her bed. She reports that she could not see straight, and was feeling extremely dizzy when she sat up. She then tried to stand but had difficulty. She reports that she did not fall, but used the bottom of the bed and her dresser to help guide her to the bathroom. She then sat on the toilet, and felt like the room was spinning and everything was going in a "whirlwind". She denies any slurred speech or unilateral deficits, but w hen her son came in around 5:30 AM, he did note that she might of had a slight right-sided facial droop. Her son took her blood pressure at the time and it was 146/89. Patient's son lives with her. Patient denies prior history of stroke or vertigo. While her son does have a history of seizure disorder, she personally has never had a seizure in the past. Patient reports that she experiences both dizziness (like the room is spinning) and lightheadedness (like she is going to pass out) whenever she is moving. She feels better when sits still/upright, however when she was lying in the CT machine, she notes that she felt like she was "moving" even when she knew she was still. Of note, her right eye has had an increasing facial droop throughout the morning, and she reports this is gotten worse. She also reports she has difficulty looking to her right, and that she has some peripheral vision loss. No total vision loss. Patient took her regular morning medications today; no recent change in medications; patient manages her own medicine at home. She normally does not have any issues with walking; no ambulatory devices such as a walker or cane at baseline. Patient works from home. No sick contacts. She denies smoking, tobacco use, or recent alcohol use. Patient denies metal/hardware in her body, and reports she has had MRIs in the past. Patient is hypertensive at 146/84 time of admission; vitals otherwise stable. ED course: Acetaminophen 1000 mg IV Zofran 4 mg IV Benadryl 12.5 mg IV Atorvastatin 80 mg p.o. Aspirin 324 mg p.o. Plavix 300 mg p.o. ROS: Patient endorses dizziness like the room is spinning, lightheaded like she was going to pass out, right eye droop, peripheral vision blurry in right eye (trouble looking to the right), headache/pressure on the right side of head, and nausea. 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 Allergies Allergy/AdvReac Type Severity Reaction Status Date / Time No Known Allergies Allergy Verified 03/18/24 08:12 Home Medications Medication Instructions Recorded Confirmed Type calcium carbonate (Calcium 600) 600 mg PO DAILY 03/31/22 03/18/24 History cetirizine 10 mg tablet (Zyrtec) 10 mg PO HS allergies 03/31/22 03/18/24 History duloxetine 30 mg capsule,delayed 30 mg PO QAM 09/24/23 03/18/24 History release (Cymbalta) escitalopram oxalate 20 mg tablet 20 mg PO QAM 09/24/23 03/18/24 History fluocinonide 0.05 % topical cream 1 applic topical BID PRN Dry Skin 09/24/23 03/18/24 History hydrocortisone 2.5 % topical cream 1 applic topical BID PRN Dry Skin 09/24/23 03/18/24 History lisinopril 20 1 tab PO QPM 09/24/23 03/18/24 History mg-hydrochlorothiazide 12.5 mg tablet oxymetazoline 0.05 % nasal spray 2 spray intranasal QAM PRN 09/24/23 03/18/24 History allergies bupropion HCl 150 mg 24 hr tablet, 150 mg PO QAM #90 tabs 10/17/23 03/18/24 Rx extended release trazodone 150 mg tablet 150 mg PO HS #90 tabs 11/08/23 03/18/24 Rx levothyroxine 137 mcg tablet 137 mcg PO QAM #90 tabs 11/19/23 03/18/24 Rx lorazepam 0.5 mg tablet 0.5 mg buccal BID PRN anxiety #30 12/12/23 03/18/24 Rx tabs liothyronine 5 mcg tablet 10 mcg (2 x 5 mcg) PO QAM #60 tabs 01/07/24 03/18/24 Rx Past Med/Surg History Problem List (Updated 03/18/24 @ 15:43 by Albert Booth MD) Ambulatory dysfunction (Acute) Balance problem (Acute) Headache (Acute) Dizziness (Acute) Seizure-like activity Dizziness Stroke-like symptoms Encounter for completion of form with patient Family history of colon cancer requiring screening colonoscopy Hypothyroidism Acute reaction to situational stress Localized osteoarthritis of left knee Prepatellar bursitis, left knee Insomnia Postcholecystectomy diarrhea Chronic diarrhea Left knee DJD Psoriasis Lumbosacral radiculopathy at L5 Sleep apnea Overweight Left knee pain Numbness Arthralgia Depression Fatigue History of thyroid cancer (Chronic) Anxiety (Chronic) Pre-diabetes (Chronic) HTN (hypertension) (Chronic) History of [place] thyroiditis Medical History Arthritis both knees Sleep apnea no cpap/not indicated per fpga engineer Psoriasis History of pneumonia (~2020) due to COVID, not hospitalized. Diarrhea current problem/reason for colonoscopy Depression with anxiety History of kidney stones History of thyroid cancer Surgical History Hx of lithotripsy Hx laparoscopic cholecystectomy (~1992) Hx of colonoscopy Hx of sinus surgery Hx of tubal ligation S/P lumpectomy of breast S/P hernia repair S/P tonsillectomy S/P thyroidectomy Family History Family/Other Ovarian cancer Grandfather (Maternal) Colon cancer Grandmother (Maternal) Colon cancer Hypertension Father Myocardial infarction Denies family history of Prostate cancer Diabetes Breast cancer Social History Smoking Status: Never smoker Second Hand Exposure: No; Do You Dip or Chew Tobacco: No; Hx Alcohol Use: Yes Hx Substance Use: No Preferred Language: Danish Communication Ability: Effective Safety And Security Manager Required: No Beliefs That Will Affect Care: None marital status: Current Living Situation: Other Current Living Situation Comment: with son current occupational status: employed current occupation: budget accountant Other Information That Helps Us Care for You: No Feels Safe at Home: Yes Childhood Exposure to Second-Hand Smoke: Yes Dental Care, Regularly: Yes Physical Activity Frequency: Does not Exercise Seatbelt Use: always Sunscreen Use: Yes Assistive Devices: Glasses Review of Systems Review of Systems: See HPI above Physical Exam Physical Exam: General: no acute distress; pleasant affect; non-toxic appearing; well- nourished; cooperative; SpO2 95% on RA HEENT: normocephalic, atraumatic; no scleral icterus; PERRLA; EOMs are not intact -patient struggles to look to the right with her right eye, and reports vision loss; patient demonstrates a right eyelid droop; no facial droop appreciated at the lips; hearing intact; patient demonstrates the ability to protrude and wiggle tongue bilaterally without deficits; patient demonstrates ability to smile, frown, and raise eyebrows without deficits; patient reports that sensation is intact and symmetric in the face assessed via 3 dermatomes bilaterally Neck: supple; no lymphadenopathy; trachea midline; patient demonstrates ability to shrug shoulders against resistance without pain or deficits; patient demonstrates ability to rotate neck gently left and right without dizziness Skin: warm, dry without signs of tenting; no cyanosis; no rashes, bruising, lesions, or erythema noted CV: chest wall NTP; RRR; S1/S2 normal; no murmurs/rubs/gallops; pulses intact and symmetric at radial, DP, and PT Lungs: no acute respiratory distress; symmetrical chest wall expansion; clear breath sounds across all lung downing w/o adventitious sounds; no wheezing ABD: Soft, NTP; BS present; no rebound/guarding; no distention MSK: no tics or fasciculations; no edema noted in the LEs b/l, nonerythematous; 5/5 pumper gager apprentice strength bilaterally; patient demonstrates the ability to wiggle toes and lift legs from the bed bilaterally with 5/5 strength Neuro: A&Ox3; normal mood and affect; fluent speech; no slurred speech; sensation intact and symmetric in the upper extremities/lower extremities/face bilaterally; negative pronator drift Results & Data Results & Data Vital Signs (Past 12 Hours) Vital Signs Temp Pulse Pulse Resp BP BP Pulse Ox 03/18/24 07:44 83 03/18/24 07:43 79 20 146/84 H 95 03/18/24 07:00 72 20 128/80 98 03/18/24 06:51 36.5 C 77 18 130/83 96 O2 Del Method 03/18/24 07:44 03/18/24 07:43 Room Air 03/18/24 07:00 Room Air 03/18/24 06:51 Room Air Laboratory Results Abnormal lab results 03/18/24 03/18/24 Range/Units 07:10 07:16 POC Chloride 100 L (101-112) mmol/L BUN/Creatinine Ratio 8.0 L (10-20) Glucose 112 H (70-99(Fasting)) mg/dl POC Glucose (other) 113 H (70-99) mg/dl AST 11 L (13-39) U/L Diagnostic Findings Head CT 03/18/24 07:08 CT OF THE HEAD WITHOUT CONTRAST CLINICAL HISTORY: neuro deficit, acute stroke suspected COMPARISON STUDY: MRI of the brain November 22, 2021. Head CT and CTA of the head July 11, 2019. TECHNIQUE: Helical axial images of the head were obtained without IV contrast. Automated exposure control was utilized for the study. A dose lowering technique was utilized adhering to the principles of ALARA. FINDINGS: No acute intracranial hemorrhage, midline shift or mass effect is present. Mild white matter hypodensities are similar to prior exam and favor small vessel disease. The ventricular system is unremarkable. The basal cisterns are patent. No extra-axial collections are present. There are no findings to suggest acute dural sinus thrombosis or acute territorial infarct. There are no calvarial fractures. Postoperative findings within the sinuses are partially imaged. IMPRESSION: No acute intracranial findings. ACT 112: Negative or not required by law. Electronically signed by: Phu Stevens M.D. 03/18/2024 7:34 AM Head CTA 03/18/24 07:08 CTA ANGIOGRAPHY OF THE HEAD CLINICAL HISTORY: neuro deficit, acute stroke suspected COMPARISON STUDY: CTA of the head July 11, 2019. TECHNIQUE: Helical axial images of the head were obtained following uneventful intravenous administration of 120 cc of Optiray. Sagittal and coronal reconstructions were viewed as well as maximal intensity projections on an independent 3-D workstation. Automated exposure control was utilized for the study. A dose lowering technique was utilized adhering to the principles of ALARA. FINDINGS: No acute intracranial hemorrhage, midline shift or mass effect is present. Ventricular system is normal. Basal cisterns are patent. There are no extra-axial collections. There is mild atherosclerotic plaque within the cavernous carotids without stenosis. There is no intracranial aneurysm. No vessel occlusion within the anterior or posterior circulation is identified. The intracranial portions of the vertebral arteries as well as the basilar artery and posterior cerebral arteries are patent. IMPRESSION: No large vessel occlusion. No intracranial aneurysm. ACT 112: Negative or not required by law. Electronically signed by: Phu Stevens M.D. 03/18/2024 7:37 AM Neck CTA 03/18/24 07:08 CT ANGIOGRAM OF THE NECK CLINICAL HISTORY: Headache. Dizziness. Loss of balance. Nausea. COMPARISON STUDY: CT exam of the neck dated 07/11/2019. TECHNIQUE: Following the IV administration of 120 of Optiray 320, CT angiogram of the neck was performed from the aortic arch to the skull base. Images are reviewed in the axial, sagittal, and coronal planes. 3-D MIPS images are created and assessed. IV contrast was administered without complication. All measurements were calculated based on NASCET criteria. A dose lowering technique was utilized adhering to the principles of ALARA. CT DOSE: 952.25 mGy.cm FINDINGS: Thoracic aorta: Visualized portions of the thoracic aorta are normal in caliber. The aortic arch demonstrates standard 3-vessel anatomy. Right carotid arterial system: The right common carotid artery is widely patent, as are the right internal and external carotid arteries. Left carotid arterial system: The left common carotid artery is widely patent, as are the left internal and external carotid arteries. Calcified plaque is noted in the carotid bulb. Vertebral arteries: Widely patent bilaterally and codominant. Subclavian arteries: Widely patent bilaterally. Intracranial vasculature: The visualized intracranial vessels at the skull base are patent. Jugular veins: Patent bilaterally. Brain parenchyma: The visualized brain parenchyma the skull base is within normal limits. Lung apices: Partially visualized upper lobe lung parenchyma appears clear. Soft tissues: The visualized pharyngeal soft tissues are normal in appearance noting angiographic phase technique. The oropharyngeal airway appears widely patent. The thyroid gland is surgically absent. The salivary glands are normal in appearance. No cervical lymphadenopathy is seen. Skeletal structures: The skeletal structures are osteopenic. The visualized calvarium at the skull base appears intact. The imaged cervical spine is maintained noting multilevel spondylosis. Sinuses and mastoids: There is evidence of previous paranasal sinus surgery. There is moderate mucosal thickening in the maxillary antra, with a 1.5 cm retention cyst noted on the left. Mild mucosal thickening is noted in the ethmoid cavity. The mastoid air cells are well pneumatized. IMPRESSION: Unremarkable CT angiogram of the neck. ACT 112: Negative or not required by law. Electronically signed by: Albert Linder M.D. 03/18/2024 7:45 AM ECG Additional Comments: ECG revealed sinus rhythm with first-degree AV block at 72 bpm; QTc 438 Code Status & VTE Plan Code Status Full code VTE Prophylaxis Plan VTE Prophylaxis will be ordered: Yes Supervising Physician Co-Signing Physician Notes MULU Farmer Note: I personally saw and examined the patient. I verified all araujo points and agree with MULU Lea with the following exceptions and/or additions: S-patient felt extremely dizzy when she got out of bed this morning and could barely walk, had nausea and pressure in her head. No passing out, no fall, no chest pain or shortness of breath. No vomiting. No recent fevers or chills or cold symptoms. No diarrhea. History and ROS reviewed as above O- Vitals reviewed Gen: AAOx3, NAD, obese HEENT: Anicteric sclerae, EOMI, some muscle fasciculations of the right orbital muscle with rightward gaze CV: RRR no mgr nl S1S2 Pulm: CTAB no wcr Abd: +BS soft NT ND no masses or hernias Ext: No edema, 2+ DP pulses Skin: No rashes, warm/dry Neuro: Full strength throughout, cranial nerves II through XII intact, sensation intact throughout all extremities, DTRs 1+ throughout CBC, CMP, troponin reviewed CT angiogram head and neck, CT head reviewed A/Y-[id number]-ulzm-old female here with acute onset of vertigo, need to rule out stroke. If MRI brain negative, will stop antiplatelets and statin. Resume statin only if lipid panel abnormal Can resume home blood pressure med if no stroke as well. This is most likely BPPV. Meclizine as needed Await PT/OT consultation to see if patient can return home tomorrow versus short-term rehab stay PG Care Time/CCT Total # of Minutes Spent Total Time Spent with Patient: Total time spent is greater than 50% in coordination of care (as documented) at patient's floor/unit and/or counseling patient: C[place] [address] INT INP/OBS CARE 3/75MIN Patient Type Established Medical Decision Making High Complexity Diagnoses Dizziness R42 HTN (hypertension) I10 Hypothyroidism E03.9 Anxiety F41.9
[2024-03-18] MEDS ORDERED: PHARMACIST DISCHARGE MED REC CONSULT PRN (09:16)
[2024-03-18] MEDS: ONDANSETRON INJ 2 MG/ML 2 ML VIAL IV STA (10:16)
[2024-03-18] MEDS ORDERED: ACETAMINOPHEN 325 MG TAB PO PRN (11:03)
[2024-03-18] MEDS ORDERED: LORazepam 0.5 MG TAB PO PRN (11:03)
[2024-03-18] MEDS ORDERED: ONDANSETRON INJ 2 MG/ML 2 ML VIAL IV PRN (11:03)
[2024-03-18] MEDS ORDERED: INFLUENZA VACC TS2024-25(6m+)/PF (IIV3) 0.5mL Syr IM ONE (11:12)
--- NOTE | 2024-03-18 14:50 | Magnetic Resonance Report ---
MRI OF THE BRAIN WITHOUT IV CONTRAST CLINICAL HISTORY: Dizziness. Right-sided eye droop. Head pressure. COMPARISON STUDY: CT of the brain dated 03/18/2024. TECHNIQUE: MRI of the brain was performed utilizing various T1 and T2-weighted sequences in the axial , sagittal, and coronal planes. IV contrast was not administered for this examination. FINDINGS: Brain parenchyma: There is mild microangiopathic change. There is no hemorrhage or mass effect. There is no restricted diffusion to suggest acute ischemia. Jordan-white matter differentiation is preserved . No extra-axial fluid collection is seen. The cerebellar tonsils are normal in configuration. Ventricles, sulci, and cisterns: Normal in configuration. Pituitary and sella: Unremarkable. Intracranial vasculature: Normal flow voids are maintained at the skull base. Orbits: The bony orbits are grossly intact. Orbital contents are normal in appearance. Sinuses and mastoids: There is evidence of previous paranasal sinus surgery. Mild mucosal thickening is noted within the ethmoid cavity and the maxillary sinuses. A 14 mm retention cyst is noted in the left maxillary sinus. The mastoid air cells are clear. Calvarium: Unremarkable. Cervical cord: Partially visualized cervical spinal cord is normal in morphology and signal intensity . IMPRESSION: No acute intracranial abnormality. ACT 112: Negative or not required by law. Electronically signed by: Albert Linder M.D. 03/18/2024 2:49 PM
--- NOTE | 2024-03-18 15:03 | Electroencephalogram ---
EEG Procedure Note Date of Service March 18, 2024 Start / End Times Start Time: 1230 End Time: 1250 Referring Physician Aime Lea PA-C History 63-year-old with history of seizure-like activity Home Medication List Medication Instructions Recorded Confirmed Type calcium carbonate (Calcium 600) 600 mg PO DAILY 03/31/22 03/18/24 History cetirizine 10 mg tablet (Zyrtec) 10 mg PO HS allergies 03/31/22 03/18/24 History duloxetine 30 mg capsule,delayed 30 mg PO QAM 09/24/23 03/18/24 History release (Cymbalta) escitalopram oxalate 20 mg tablet 20 mg PO QAM 09/24/23 03/18/24 History fluocinonide 0.05 % topical cream 1 applic topical BID PRN Dry Skin 09/24/23 03/18/24 History hydrocortisone 2.5 % topical cream 1 applic topical BID PRN Dry Skin 09/24/23 03/18/24 History lisinopril 20 1 tab PO QPM 09/24/23 03/18/24 History mg-hydrochlorothiazide 12.5 mg tablet oxymetazoline 0.05 % nasal spray 2 spray intranasal QAM PRN 09/24/23 03/18/24 History allergies bupropion HCl 150 mg 24 hr tablet, 150 mg PO QAM #90 tabs 10/17/23 03/18/24 Rx extended release trazodone 150 mg tablet 150 mg PO HS #90 tabs 11/08/23 03/18/24 Rx levothyroxine 137 mcg tablet 137 mcg PO QAM #90 tabs 11/19/23 03/18/24 Rx lorazepam 0.5 mg tablet 0.5 mg buccal BID PRN anxiety #30 12/12/23 03/18/24 Rx tabs liothyronine 5 mcg tablet 10 mcg (2 x 5 mcg) PO QAM #60 tabs 01/07/24 03/18/24 Rx Inpatient Medication List Discontinued Medications Aspirin (Aspirin Chew 324 Mg) 324 mg PO NOW STA Stop: 03/18/24 08:11 Last Admin: 03/18/24 08:33 Dose: 324 mg Documented By: KUSH Atorvastatin Calcium (Atorvastatin 40 Mg Tab) 80 mg PO NOW STA Stop: 03/18/24 08:11 Last Admin: 03/18/24 08:34 Dose: 80 mg Documented By: KUSH Clopidogrel Bisulfate (Clopidogrel Bisulfate 300 Mg Tab) 300 mg PO NOW STA Stop: 03/18/24 08:11 Last Admin: 03/18/24 08:34 Dose: 300 mg Documented By: KUSH Diphenhydramine HCl (Diphenhydramine 50 Mg/Ml Vial) 12.5 mg IV NOW STA Stop: 03/18/24 08:12 Last Admin: 03/18/24 08:35 Dose: 12.5 mg Documented By: KUSH Acetaminophen (Ofirmev) 1,000 mg in 100 mls @ 400 mls/hr IV NOW STA Stop: 03/18/24 08:22 Last Infusion: 03/18/24 09:10 Dose: Infused Documented By: Admin: 03/18/24 08:38 Dose: 400 mls/hr Documented By: KUSH Ioversol (Optiray 320 125ml) 120 ml IV ONCE ONE Stop: 03/18/24 07:26 Last Admin: 03/18/24 07:24 Dose: 120 ml Documented By: LEAH Ondansetron HCl (Ondansetron Inj 2 Mg/Ml 2 Ml Vial) 4 mg IV NOW STA Stop: 03/18/24 08:09 Last Admin: 03/18/24 10:16 Dose: Not Given Documented By: KUSH Description This is a 21 electrode EEG with a single channel dedicated to limited EKG. The electrodes were placed in accordance with the International 10-20 system. Interpretation The predominant background activity consists of a fairly well modulated 9 Hz activity, of up to 40 mV in amplitude,seen symmetrically distributed over the posterior head regions bilaterally. This activity attenuates nicely with eye- opening and other alerting procedures. Photic stimulation was performed and elicited no change in the background activity and no abnormal responses were seen. Hyperventilation was not performed. A mild amount of muscle and movement artifact activity contaminated the re cording and did not hinder interpretation to any significant degree. Throughout the waking portion of the recording, no focal abnormalities, abnormal slow activity, or potentially epileptogenic discharges were seen. The patient entered the drowsy state with no further activation. In summary, this EEG was normal during wakefulness and drowsiness. No focal abnormalities, potentially epileptogenic discharges, or abnormal slow activity were seen. Clinical Correlation The abscence of potentially epileptogenic activity does not exclude a seizure d isorder, since interictally, EEGs can be normal. Clinical correlation is required. [facility] EEG Procedure Codes Indication for Procedure (1) Seizure-like activity: Neurology Neurology: 08605 EEG include record awake & drowsy
--- NOTE | 2024-03-18 17:28 | XCELERA ---
[id number]
[2024-03-18] MEDS: LISINOPRIL/HCTZ 20/12.5MG 1 TAB TAB PO SCH (20:33)
[2024-03-18] MEDS: CETIRIZINE HCL 10 MG TABLET PO SCH (20:34)
[2024-03-18] MEDS: traZODone HCL 50 MG TAB PO SCH (22:18)
[2024-03-18] MEDS: MECLIZINE 12.5 MG TAB PO PRN (22:18)
[2024-03-19 04:12] LABS: Appearance Urine Clear (Clear); Bilirubin Urine Negative (Negative); Blood Urine Negative (Negative); Color Urine Yellow; Glucose Urine UA Negative (Negative); Ketones Urine Negative (Negative); Leukocyte Esterase Urine Negative (Negative); Nitrite Urine Negative (Negative); Protein Urine Negative (Negative); Specific Gravity Urine 1.012 (1.000-1.030); Urobilinogen Urine Negative (Negative)
[2024-03-19] MEDS: LEVOTHYROXINE SODIUM 137 MCG TABLET PO SCH (05:47)
[2024-03-19 06:37] LABS: Basophils # (auto) 0.07 K/uL (0.00-0.20); Basophils % (auto) 1.4 %; Eosinophils # (auto) 0.27 K/uL (0.00-0.50); Eosinophils % (auto) 5.5 %; Hemoglobin 13.4 g/dl (12.0-16.0); Immature Granulocytes # (auto) 0.02 K/uL (0.01-0.20); Immature Granulocytes % (auto) 0.4 %; Lymphocytes # (auto) 1.23 K/uL (1.20-3.40); Mean Corpuscular Hemoglobin 28.3 pg (25.0-34.0); Mean Corpuscular Hgb Conc 33.5 g/dL (32.0-36.0); Mean Corpuscular Volume 84.4 fL (80.0-100.0); Mean Platelet Volume 10.4 fL (9.4-12.4); Monocytes # (auto) 0.42 K/uL (0.11-0.59); Monocytes % (auto) 8.5 %; Neutrophils # (auto) 2.91 K/uL (1.40-6.50); Neutrophils % (auto) 59.2 %; Platelet Count 259 K/uL (130-400); RDW Coefficient of Variation 12.1 % (11.5-14.5); RDW Standard Deviation 37.2 fL (36.4-46.3); Red Blood Count 4.74 M/uL (4.20-5.40); White Blood Count 4.92 K/ul (4.8-10.8)
[2024-03-19 07:01] LABS: Estimated Average Glucose 117 mg/dl; Hemoglobin A1C 5.7 % (4.5-5.6)
[2024-03-19 07:21] LABS: BUN Creatinine Ratio 11.5 (10-20); Calcium 9.2 mg/dl (8.6-10.3); Chol HDL Ratio 3.7 (0-5); Creatinine Clr Calc Pharmacy 68.6 ml/min; Potassium 3.8 mmol/L (3.5-5.1)
[2024-03-19 07:26] VITALS: RESP 18
[2024-03-19 07:36] LABS: Thyroid Stimulating Hormone 1.794 uIu/ml (0.300-4.500)
[2024-03-19] MEDS: buPROPion XL 150 MG TABCR PO SCH (07:56)
[2024-03-19] MEDS: DULoxetine HCL 30 MG CAP PO SCH (07:56)
[2024-03-19] MEDS: ESCITALOPRAM OXALATE 20 MG TAB PO SCH (07:57)
[2024-03-19] MEDS: LIOTHYRONINE SODIUM 5 MCG TAB PO SCH (07:57)
[2024-03-19] MEDS: CALCIUM CARBONATE 1250MG TAB PO SCH (07:57)
[2024-03-19] MEDS ORDERED: ATORVASTATIN 40 MG TAB PO SCH (09:00)
[2024-03-19] MEDS ORDERED: CLOPIDOGREL BISULFATE 75 MG TAB PO SCH (09:00)
[2024-03-19] MEDS ORDERED: ASPIRIN 81 MG ECTAB PO SCH (09:00)
--- NOTE | 2024-03-19 12:12 | Discharge Summary ---
Discharge Summary Date of Service March 19, 2024 Principal Dx & Hospital Course #1 = Principal Diagnosis (1) Dizziness: Acute onset of dizziness and ambulatory dysfunction upon waking at 0500 on 03/18 LKW the evening of 03/17 around midnight. Patient reports she could barely walk when she got up, and was experiencing significant ambulatory dysfunction No prior history of stroke or vertigo Patient was not a TNKase candidate based on timeline of symptoms Telestroke recommended aspirin/Plavix load, atorvastatin, and EEG given family history of seizures and right eye twitching noted on clinical exam EEG recommended by Neuro and was normal Brain MRI negative Echocardiogram with bubble study negative Stroke/TIA ruled out--> stop DAPT and statin as lipid panel good. This is BPPV Improved with meclizine and Pato maneuvers Dc to home with Rx for outpt PT for Pato maneuvers (2) HTN (hypertension): Continue HCTZlisinopril BPs normal (3) Hypothyroidism: Continue levothyroxine and liothyronine TSH here normal (4) Anxiety: Continue home duloxetine, bupropion, trazodone, and Lexapro Lorazepam as needed Plan Disposition: dc to home VTE PPx: SCDs Notes For Next Care Provider Medication Changes From Visit Added meclizine 12.5mg po q6h prn vertigo Admission HPI Per Admitting Provider Marietta is a pleasant 63-year-old female with PMH of HTN, anxiety, depression, thyroid cancer, sleep apnea, psoriasis, and prediabetes. She presented on 03/18 after waking up this morning with dizziness and difficulty walking. She reports that she felt fine when she went to bed last night around midnight. She then woke up around 5 AM to use the bathroom, and had a hard time transitioning from lying down to sitting at the edge of her bed. She reports that she could not see straight, and was feeling extremely dizzy when she sat up. She then tried to stand but had difficulty. She reports that she did not fall, but used the bottom of the bed and her dresser to help guide her to the bathroom. She then sat on the toilet, and felt like the room was spinning and everything was going in a "whirlwind". She denies any slurred speech or unilateral deficits, but when her son came in around 5:30 AM, he did note that she might of had a slight right-sided facial droop. Her son took her blood pressure at the time and it was 146/89. Patient's son lives with her. Patient denies prior history of stroke or vertigo. While her son does have a history of seizure disorder, she personally has never had a seizure in the past. Patient reports that she experiences both dizziness (like the room is spinning) and lightheadedness (like she is going to pass out) whenever she is moving. She feels better when sits still/upright, however when she was lying in the CT machine, she notes that she felt like she was "moving" even when she knew she was still. Of note, her right eye has had an increasing facial droop throughout the morning, and she reports this is gotten worse. She also reports she has difficulty looking to her right, and that she has some peripheral vision loss. No total vision loss. Patient took her regular morning medications today; no recent change in medications; patient manages her own medicine at home. She normally does not have any issues with walking; no ambulatory devices such as a walker or cane at baseline. Patient works from home. No sick contacts. She denies smoking, tobacco use, or recent alcohol use. Patient denies metal/hardware in her body, and reports she has had MRIs in the past. Patient is hypertensive at 146/84 time of admission; vitals otherwise stable. ED course: Acetaminophen 1000 mg IV Zofran 4 mg IV Benadryl 12.5 mg IV Atorvastatin 80 mg p.o. Aspirin 324 mg p.o. Plavix 300 mg p.o. ROS: Patient endorses dizziness like the room is spinning, lightheaded like she was going to pass out, right eye droop, peripheral vision blurry in right eye (trouble looking to the right), headache/pressure on the right side of head, and nausea. 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 Discharge Exam Constitutional WD/WN, vitals as above Respiratory normal respiratory effort, lungs clear to auscultation Cardiovascular RRR, no murmur, no edema Neurologic PERRL, EOMI, accommodation nl, no face palsy, no dysarthria Discharge Plan Discharge Items Patient Disposition: Home - Self-Care Reason For Visit: STROKE-LIKE SYMPTOMS Discharge Diagnosis: Vertigo Condition on Discharge: Good Activity: As commented below Bathing: No limitations Exercise/Sports: Gradually increase as tolerated Driving/Machine Use: No driving until vertigo completely resolved Non-emergency contact: Primary Care Provider Call non-emergency contact if: you have any medication questions and your symptoms worsen Follow-up/Referrals: Kirsty Figueroa MD [Primary Care Provider] - 03/28/24 10:00 am (Hospital follow up scheduled for March 28, 2024 at 10:00 am.) Diet: Heart Healthy Addtl Attending Provider Instructions: You can continue taking meclizine as needed for your vertigo and work on doing Pato Maneuvers at home as we discussed. It may be helpful to search up a You Tube video on Pato maneuvers to guide you on how to do these at home. You were given a prescription for outpatient PT. You did not have a stroke or a TIA. Your workup for stroke was all normal! Pending Studies at Discharge: No Stand-Alone [facility] Sm[facility] C[facility] Medications and DC Order Prescriptions: New meclizine 12.5 mg Tablet 12.5 mg PO Q6H PRN (Reason: dizziness) Qty: 15 0RF Continued bupropion HCl 150 mg tablet extended release 24 hr 150 mg PO QAM Qty: 90 1RF trazodone 150 mg tablet 150 mg PO HS Qty: 90 1RF levothyroxine 137 mcg tablet 137 mcg PO QAM Qty: 90 1RF lorazepam 0.5 mg tablet 0.5 mg BUCCAL BID PRN (Reason: anxiety) Qty: 30 3RF liothyronine 5 mcg tablet 10 mcg PO QAM Qty: 60 5RF Rx Instructions: Take 2 tablets in the AM calcium carbonate [Calcium 600] 600 mg calcium (1,500 mg) tablet 600 mg PO DAILY cetirizine [Zyrtec] 10 mg tablet 10 mg PO HS oxymetazoline 0.05 % [place],Non-Aerosol 2 spray INTRANASAL QAM PRN (Reason: allergies) lisinopril-hydrochlorothiazide 20-12.5 mg tablet 1 tab PO QPM hydrocortisone 2.5 % cream 1 applic topical BID PRN (Reason: Dry Skin) Rx Instructions: Apply to areas of the scalp, ear and chest twice daily for up to 2 weeks as needed for flaring. fluocinonide 0.05 % cream 1 applic topical BID PRN (Reason: Dry Skin) Rx Instructions: Apply to area of the lower back/buttock twice daily x 2 weeks as directed. escitalopram oxalate 20 mg tablet 20 mg PO QAM Hold Instructions: No longer taking/transition to Cymbalta duloxetine [Cymbalta] 30 mg capsule,delayed release(DR/EC) 30 mg PO QAM Discharge Orders: Discharge Order (Routine); Ordered 03/19/24 Ordered By: Sharon Sheehan Admission Data Admit Date/Time: 03/18/24 09:15 Attending Provider: Sharon Sheehan Admit Provider: Sharon Sheehan Primary Care Provider: Kirsty Figueroa V. Other Providers: Sharon Sheehan Hospital Stay Data Consultations 03/18/24 08:43 ED Decision to Admit Stat Diagnostic Imagining Performed 03/18/24 07:08 CT angio head w con Stat CT angio neck with con Stat CT head/brain wo con Stat 03/18/24 09:16 MR brain wo con Urgent Pending Results Patient Have Any Pending Studies at Discharge: No Discharge Instructions Given to Patient (Per Discharging Provider) You can continue taking meclizine as needed for your vertigo and work on doing Pato Maneuvers at home as we discussed. It may be helpful to search up a You Tube video on Pato maneuvers to guide you on how to do these at home. You were given a prescription for outpatient PT. You did not have a stroke or a TIA. Your workup for stroke was all normal! Total Time Total Time Spent Total Time Spent (In Minutes): 35 min Total Time Includes: Examination of the Patient, Discharge Planning, Medication Reconciliation and Communication With Other Providers Coding Level of Care Code 79428 INP/OBS DISCH >30 MIN Diagnoses Dizziness R42 HTN (hypertension) I10 Hypothyroidism E03.9 Anxiety F41.9
[2024-03-19 15:47] VITALS: BP 139/79; PULSE 71; TEMP 98.1; O2SAT 98
--- NOTE | 2024-03-20 05:51 | Electrocardiogram Report ---
Test Reason : Blood Pressure : */* mmHG Vent. Rate : 72 BPM Atrial Rate : 72 BPM P-R Int : 214 ms QRS Dur : 82 ms QT Int : 400 ms P-R-T Axes : 62 7 51 degrees QTcB Int : 438 ms Sinus rhythm with 1st degree A-V block Otherwise normal ECG When compared with ECG of 17-Jun-2020 14:56, [place] interval has increased Confirmed by Rodney Barrientos ([id number]) on 03/20/2024 5:50:46 AM Referred By: REFERRED SELF Confirmed By: Rodney Barrientos
== END 2024-03-19 18:44 | disposition home or self-care (01) ==
LOC: SUATTDRO → 2S 06:46 → ED 06:46 → 2S 10:16